=== PATIENT | female | born 1990 | race Caucasian/White ===

== ENCOUNTER 2018-12-04 11:40 | Emergency (ER) | payer MEDICAID, SELFPAY ==
[2018-12-04] VITALS (28 sets, daily range): BP systolic 129–150; BP diastolic 76–98; PULSE 73–113; RESP 18–43; TEMP 36.3–37; O2SAT 90–99
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
[2018-12-04 12:17] LABS: Abs Immature Grans 0.05 k/cumm (0.0-0.09); Absolute Basophil Count 0.02 k/cumm (0.0-0.2); Absolute Eosinophil Count 0.01 k/cumm (0.0-0.7); Absolute Lymphocyte Count 1.41 k/cumm (1.2-3.4); Absolute Monocyte Count 1.33 k/cumm (0.11-0.7); Basophils % 0.2; Eosinophils % 0.1; HCT 45.5 % (36.0-46.0); Immature Grans % 0.4; Lymphocytes % 11.4; Mean Corpuscular Hemoglobin 29.2 pg (27.0-33.0); Mean Corpuscular Volume 88.5 fL (80-95); Mean Platelet Volume 11.3 fL (8.0-11.0); Monocytes % 10.7; Neutrophils % 77.2; Platelet Count 365 x1000/uL (130-400); RBC 5.14 m/cumm (4.00-5.20); RBC Distribution Width 14.7 % (11.7-14.6); White Blood Cell Count 12.41 k/cumm (4.4-10.8)
[2018-12-04 12:18] LABS: Absolute Neutrophil Count 9.58 k/cumm (1.2-6.7)
[2018-12-04] MEDS: fentaNYL 100 MCG/2 ML VIAL IVP ×2 (12:20→14:54)
[2018-12-04] MEDS: Lidocaine 2% Multi-Dose 50 ML VIAL (12:20)
[2018-12-04] MEDS: Bupivacaine 0.5% Pres-Free 30 ML VIAL (12:20)
[2018-12-04] MEDS: Normal Saline 1,000 ML 1000 ML IV ×2 (12:35→14:35)
[2018-12-04 12:45] LABS: ALT 45 U/L (14-59); AST 80 U/L (15-37); Albumin 3.8 g/dL (3.4-5.0); Alkaline Phosphatase 73 U/L (46-116); Anion Gap 13.6 mmol/L (3-11); BUN 7 mg/dL (7-18); Bilirubin, Total 0.4 mg/dL (0.2-1.0); CO2 25.4 mmol/L (21.0-32.0); CREATININE 0.87 mg/dL (0.55-1.02); Calcium 9.7 mg/dL (8.5-10.1); Chloride 104 mmol/L (98-107); Glucose 129 mg/dL (70-100); Potassium 3.4 mmol/L (3.5-5.1); Sodium 143 mmol/L (136-145); Total Protein 9.1 g/dL (6.4-8.2)
--- NOTE | 2018-12-04 12:57 | NUR.NOTE ---
Nursing Note: For CT, pt's clothing cut the rest of the way (maikel). Piercings removed from ears and belly button. 3 from left ear, 2 from right ear and one from stomach. Put in small urine cup with lid for safe keeping, place with pt's belongings.
[2018-12-04] MEDS: Omnipaque 350 MG/ML 100 ML BTL IJ (12:58)
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
--- NOTE | 2018-12-04 13:03 | NUR.NOTE ---
Nursing Note: added to previous note, nose ring
[2018-12-04 13:13] LABS: ETHANOL BLOOD < 3.0 mg/dL (<3)
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
[2018-12-04] MEDS: HYDROmorphone 2 MG/ML VIAL 1 MG IVP (13:50)
[2018-12-04] MEDS: Normal Saline Flush 10 ML SYR IVP (14:14)
--- NOTE | 2018-12-04 14:46 | DI.RAD_ITS ---
EXAM: XR PORTABLE CHEST AP POST LINE INDICATION: chest tube placed. COMPARISON: No exams were available for comparison TECHNIQUE: 2D digital imaging was performed. FINDINGS: A left chest tube is noted in place. There is apparent re-expansion of the left lung. No infiltrate i s identified. There is no pleural effusion. The cardiovascular structures are intact.
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
[2018-12-04] MEDS: fentaNYL 100 MCG/2 ML VIAL (16:26)
--- NOTE | 2018-12-04 17:37 | NUR.NOTE ---
Nursing Note: Of note: pt has been transferred to [facility] [place] [facility] - [employer] debit card with pt's name found in room when cleaned. Put in bag, labeled and to be given to suction dredge dumping supervisor to put in safe.
--- NOTE | 2018-12-04 19:40 | DI.CT_ITS ---
EXAM: CT THORACIC AND LUMBAR SPINE REC CLINICAL HISTORY: VERBAL FROM [facility] [place] COMPARISON: CT THORACIC AND LUMBAR SPINE REC from 12/04/2018 CT THORACIC AND LUMBAR SPINE REC from 12/04/2018 FINDINGS: There is normal alignment of the thoracic spine. No acute fractures or subluxations are present. There is normal alignment of the lumbar spine. No acute fractures or subluxations are present. There does appear to be a nondisplaced fracture of the posterior aspect of the left 12th rib. IMPRESSION: No acute fractures of the thoracic or lumbar spine. Nondisplaced fracture of the posterior aspect of the left 12th rib.
--- NOTE | 2018-12-05 18:33 | NUR.NOTE ---
Patient debit card found in room after she was transferred to [facility] [place] [place]. Sent the card with Nursing fabrication supervisor to savanah vanegas in a valuables envelope.Nursing Note:
== END 2018-12-04 16:30 | disposition short-term general hospital (02) ==
PROVIDERS: Emergency Provider Physician Assistant
DX: S27.0XXA Traumatic pneumothorax, initial encounter (principal); S82.891A Other fracture of right lower leg, initial encounter for closed fracture; S52.202A Unspecified fracture of shaft of left ulna, initial encounter for closed fracture; V43.52XA Car driver injured in collision with other type car in traffic accident, initial encounter
CPT/HCPCS: 29125; 32551; 71045; 74177; 80053; 81025; 96361; 96374; 96375; 96376; 99253; 99285; 70450; 71260; 72125; 73110; 73600; 80320; 85025; J3010; J3490; L0172